=== PATIENT | male | born 1990 | race Caucasian/White ===

== ENCOUNTER 2017-09-17 17:35 | Emergency (ER) | payer SELFPAY ==
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
[2017-09-17 17:54] VITALS: BP 131/86; PULSE 80; RESP 17; TEMP 97.3; O2SAT 96
== END 2017-09-17 17:58 | disposition home or self-care (01) ==
DX: Z04.1 Encounter for examination and observation following transport accident (principal); F17.200 Nicotine dependence, unspecified, uncomplicated

== ENCOUNTER 2018-02-13 18:06 | Emergency (ER) | payer SELFPAY ==
[2018-02-13] MEDS ORDERED: ONDANSETRON 4 MG/2 ML VIAL IVP ONE (18:24)
[2018-02-13] MEDS ORDERED: chlordiazePOXIDE 25 MG CAP PO ONE (18:24)
--- NOTE | 2018-02-13 18:26 | EDPHY ---
HPI/HX/ROS/PE/MDM Narrative: CHIEF COMPLAINT: Opiate withdrawal HPI: The patient is a 27-year-old male with a history of heroin use. He states he has been at the [facility] since yesterday and was told to go to the ER to obtain medications to control his withdrawal symptoms. He specifically states he would like some Librium. He plans to return to the ER. He denies any fever, trauma or other acute medical condition. REVIEW OF SYSTEMS: Aside from elements discussed in the HPI, a comprehensive 10-point review of systems was reviewed and is negative. PMH: History of narcotic abuse. 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 PHYSICAL EXAM: General:Patient is alert, in no acute distress. He appears somewhat anxious. ENT:Eyes are normal to inspection. ENT inspection normal. Neck: Normal inspection. Full range of motion. Respiratory:No respiratory distress. Breath sounds normal bilaterally. Cardiovascular: Regular rate and rhythm. Strong peripheral pulses. Normal cap refill. Abdomen:The abdomen is nontender to palpation. There are no peritoneal signs. There are normal bowel sounds. Extremities: Normal appearance. Full range of motion. Neuro: Oriented x3. Normal motor function. Normal sensory function. ED Course: Patient was treated with oral cloinidine, zofran and librium and is feeling better. He will be transferred back to the [facility]. I see no signs of other emergent medical issue. General Time Seen by Provider: 02/13/18 18:20 Initial Vital Signs: Initial Vital Signs Temperature (C) 36.8 C 02/13/18 18:09 Heart Rate 100 02/13/18 18:09 Respiratory Rate 16 02/13/18 18:09 Blood Pressure 120/72 02/13/18 18:09 O2 Sat (%) 99 02/13/18 18:09 O2 Delivery Mode Room Air Allergies/Adverse Reactions: No Known Allergies Allergy (Unverified 02/13/18 18:09) Home Medications: Medication Instructions Recorded NK [No Known Home Meds] 02/13/18 Departure - Departure Disposition: Home, Routine, Self-Care Clinical Impression: Opiate withdrawal Condition: Good Instructions: Chlordiazepoxide (By mouth), Narcotic Abuse (ED) Additional Instructions: Go to [facility] for further management of your withdrawal symptoms. Referrals: PAOLA WAGGONER [Primary Care Provider] - As per Instructions
[2018-02-13] MEDS ORDERED: ONDANSETRON DISINTEGRATING 4 MG TAB ONE (18:39)
[2018-02-13] MEDS ORDERED: ONDANSETRON DISINTEGRATING 4 MG TAB PO ONE (18:41)
[2018-02-13 18:47] VITALS: BP 128/82; PULSE 102; RESP 20; TEMP 98.1; O2SAT 98
[2018-02-13] MEDS ORDERED: CHLORDIAZEPOXIDE 25MG PREPK#6 BTL TAKEHOME ONE (19:04)
== END 2018-02-13 19:21 | disposition home or self-care (01) ==
DX: F11.23 Opioid dependence with withdrawal (principal)
CPT/HCPCS: J2405